=== PATIENT | male | born 1960 | race African-American/Black ===

== ENCOUNTER 2017-02-17 16:40 | Inpatient (IN) | payer MEDICARE ==
[~2017-02-17 16:40] MED LIST: ISOVUE-370 76%-LOCM 1 ML ONE
--- NOTE | 2017-02-17 17:29 | RAD ---
PORTABLE CHEST: Comparison: 03-23-16 History: Shortness of breath. FINDINGS: Heart size and mediastinum are within normal limits. The lungs appear clear of infiltrates. No inter josesito change since the prior exam. IMPRESSION: No active intrathoracic disease. POS: [facility]
[2017-02-17 17:30] LABS: #Eosinphils 0.4 thou/uL (0.0-0.7); #Lymphocytes 2.1 thou/uL (1.20-3.40); #Monocytes 1.1 thou/uL (0.11-0.59); #Neutrophils 4.7 thou/uL (1.40-6.50); %Basophils 0.2 % (0.0-1.0); %Eosinophils 4.3 % (0.0-10.0); %Lymphocytes 25.5 % (21.0-51.0); %Monocytes 13.5 % (0.0-10.0); Hematocrit 38.1 % (42.0-52.0); Mean Platelet Volume 9.8 fL (7.4-10.4); Red Blood Cell (RBC) Count 3.75 mill/uL (4.70-6.10); White Blood Cell (WBC) Count 8.4 thou/uL (4.8-10.8)
[2017-02-17 17:44] LABS: ALT (SGPT) 86 U/L (8-55); AST (SGOT) 155 U/L (5-34); Alkaline Phosphatase 872 U/L (40-150); Anion Gap 11 mmol/L (10-20); BUN (Urea Nitrogen) 10 mg/dL (8.4-25.7); Bilirubin, Total 5.2 mg/dL (0.2-1.2); CK (CPK) 103 U/L (30-200); Calc. Creatinine Clearance 0 mL/min (70-130); Calcium 8.7 mg/dL (7.8-10.44); Carbon Dioxide 26 mmol/L (22-29); Chloride 96 mmol/L (98-107); Estimated GFR-MDRD Greater than 90; Globulin 6.4 g/dL (2.4-3.5); Protein, Total 8.8 g/dL (6.0-8.3)
[2017-02-17 17:49] LABS: Troponin I Less than 0.010 ng/mL (< 0.028)
[2017-02-17 18:20] LABS: Bilirubin Small (Negative); Blood, Urine Negative (Negative); Glucose, Urine (Dipstick) >=1000 mg/dL (Negative); Ketone, Urine Negative (Negative); Nitrite Negative (Negative); Protein, Urine (Dipstick) Negative (Neg-Trace)
[2017-02-17 18:29] LABS: Amphetamine Not Detected (NotDetected); Methadone Not Detected (NotDetected); Methamphetamine Not Detected (NotDetected)
--- NOTE | 2017-02-17 18:52 | CT ---
CT ANGIO CHEST PERFORMED WITH INTRAVENOUS CONTRAST ENHANCEMENT WITH 3D RECONSTRUCTIONS: History: Shortness of breath. FINDINGS: The lungs are clear of any infiltrative process. There is no significant mediastinal or hilar adenop athy. The thoracic aorta is tortuous. The ascending thoracic aorta has an AP dimension of approximately 3. 9 cm. There is good pulmonary artery opacification, there is no CT evidence for pulmonary embolus. IMPRESSION: No CT evidence of pulmonary embolus. See CT abdomen report for additional findings. POS: [facility]
--- NOTE | 2017-02-17 18:53 | CT ---
CT BRAIN PERFORMED WITHOUT CONTRAST ENHANCEMENT: History: Headache, altered mental status. Comparison: 04-29-12 FINDINGS: Ventricular and cisternal system is within normal limits. There is no sign of intracerebral hemorrha ge or extraaxial fluid collections. Mastoid air cells and visualized sinuses are clear. IMPRESSION: No acute intracranial abnormalities. POS: [facility]
--- NOTE | 2017-02-17 19:46 | CT ---
CT OF ABDOMEN AND PELVIS PERFORMED WITH CONTRAST ENHANCEMENT: History: Abdominal and chest pain, shortness of breath, history of hypertension and diabetes. FINDINGS: The lung bases are clear. The liver is slightly enlarged at 19 cm is diffusely infiltrated with multiple masses with more conf luent area within the right lung. I am not certain whether this is a primary mass or just a conglome ration of multiple small nodules. Spleen measures 11 cm in length. The pancreas and gallbladder sol ons appear unremarkable. A small amount of ascites is noted adjacent to the liver and the pelvis. The right and left adrenal glands and right and left kidneys are normal in size. No significant roni aortic or mesenteric adenopathy. There is some slightly enlarged portal lymph nodes noted. There is some mild fluid distention of the small bowel. I cannot exclude this as an enteritis. CT OF PELVIS PERFORMED WITH CONTRAST ENHANCEMENT: No adenopathy, mass, or free fluid. Review of osseous structures show no lytic or blastic bony change. IMPRESSION: 1. Multiple masses within the liver. This could either be a primary hepatocellular carcinoma or meta static disease. 2. Findings telephoned to Dr. Schwartz. POS: [facility]
[2017-02-17] MEDS ORDERED: Dextrose 50% Abboject 50 ML SYRINGE SLOW IVP PRN (21:06)
[2017-02-17] MEDS ORDERED: Dextrose 5% in Water 1,000 ML IV PRN (21:06)
[2017-02-17] MEDS ORDERED: Ondansetron HCl/PF 4 MG/2 ML Vial IVP PRN ×2 (21:07→21:09)
[2017-02-17] MEDS ORDERED: Levalbuterol HCl 0.63 MG/3 ML NEB NEB PRN (21:07)
[2017-02-17] MEDS ORDERED: cloNIDine 0.1 MG TAB PO PRN (21:09)
[2017-02-17] MEDS ORDERED: HYDROcodone/Acetaminophen 5/325 mg Tablet PO PRN ×2 (21:09)
[2017-02-17] MEDS ORDERED: Ondansetron ODT 4 MG TAB SL PRN (21:09)
[2017-02-17] MEDS ORDERED: Acetaminophen 325 MG TAB PO PRN (21:09)
[2017-02-17] MEDS ORDERED: Morphine 2 MG/ML SYRINGE SLOW IVP PRN (21:10)
[2017-02-17] MEDS ORDERED: Amlodipine 5 MG TAB PO SCH (21:30)
[2017-02-17 21:39] LABS: Prothrombin Time 16.3 SEC (12.0-14.7)
[2017-02-17 22:15] VITALS: BMI 17.4
[2017-02-17] MEDS: Dextrose 5 % And 0.9 % NaCl 1,000 ML IV SCH (22:34)
--- NOTE | 2017-02-18 05:37 | HP ---
DATE OF ADMISSION: 02/17/2017 PRIMARY CARE PHYSICIAN: Dr. Claire CHIEF COMPLAINT: Shortness of breath. HISTORY OF PRESENT ILLNESS: Mr. Casper is a 56-year-old -[place] male who was brought in by a friend per patient request. He apparently had been having shortness of breath for the last few day s, but had denied any abdominal pain, nausea or vomiting. Per friend, he was also noted not to be hi mself and had not been feeling well for the last few days. He had also mentioned that he had been s een in the ER before possibly for high blood pressure, but unsure about what he was taking. ALLERGIES: No known drug allergy. PAST MEDICAL HISTORY: Diabetes that was mentioned above. Hypertension, the patient was only able t o tell that he was taking metformin. PAST SURGICAL HISTORY: Unknown. SOCIAL HISTORY: The patient drinks beer. No history of smoking. FAMILY HISTORY: Unknown. REVIEW OF SYSTEMS: The patient only complaint of shortness of breath with exertion, congestion. De nied any headache or dizziness, friend had noted that he might have been confused, but patient denie d any fever, chills, abdominal pain, denied any diarrhea or constipation. No hematemesis, melena or hemoptysis. PHYSICAL EXAMINATION: VITAL SIGNS: Blood pressure ranging from 158/100 to 160/98, heart rate of 91, respiratory rate 18, satting 98% on room air, temperature of 98.6 to 99. GENERAL: The patient is awake. HEENT: Pupils equally reactive, icteric sclerae. HEART: Normal S1, S2. LUNGS: Clear anteriorly. ABDOMEN: Slightly distended, but nontender to palpation. EXTREMITIES: No edema. NEUROLOGIC: The patient is aware of where he is at and able to follow commands. LABORATORY DATA: White count 8.4, hemoglobin 12.5, platelet 191. D-dimer 1.75. Sodium 129, potass ium 3.9, chloride 96, BUN 10, creatinine 0.77, total bilirubin 5.2, AST 155, ALT 86, alkaline phosph atase 872, BNP 97. Albumin 2.4, globulin 6.4, lipase 41. UA showed glucose of more than one thousa nd with bilirubin. UDS was positive for cocaine. Chest CT was negative for PE. The brain CT did n ot show any acute changes. CT of the abdomen showed multiple masses within the liver, could either be a primary hepatocellular carcinoma metastatic, small amount of ascites was noted adjacent to the liver and pelvis. ASSESSMENT: 1. Liver masses possible primary hepatocellular metastatic disease. 2. Abnormal liver function tests, likely secondary to above. 3. Shortness of breath, negative for pulmonary embolism. 4. Hypertension. 5. Diabetes. 6. Hyponatremia. 7. Encephalopathy. PLAN: Plan will be to consult GI and Oncology. We will request for CEA, alpha-fetoprotein, PT/INR. We will start patient on IV fluid D5 normal saline for the hyponatremia. Repeat BMP tomorrow. We will also check ammonia level and recheck CMP tomorrow. SCD for DVT prophylaxis. We will start th e patient on antihypertensive medication. We will also put the patient to check insulin slidi ng scale.
[2017-02-18] MEDS: Amlodipine 5 MG TAB PO SCH (08:15)
[2017-02-18 08:54] LABS: ALT (SGPT) 84 U/L (8-55); AST (SGOT) 147 U/L (5-34); Alkaline Phosphatase 814 U/L (40-150); Anion Gap 9 mmol/L (10-20); BUN (Urea Nitrogen) 7 mg/dL (8.4-25.7); Bilirubin, Total 4.6 mg/dL (0.2-1.2); Calc. Creatinine Clearance 86 mL/min (70-130); Calcium 8.3 mg/dL (7.8-10.44); Carbon Dioxide 26 mmol/L (22-29); Chloride 95 mmol/L (98-107); Estimated GFR-MDRD Greater than 90; Globulin 5.9 g/dL (2.4-3.5); Magnesium 1.2 mg/dL (1.6-2.6); Phosphorus 3.2 mg/dL (2.3-4.7); Protein, Total 8.1 g/dL (6.0-8.3)
[2017-02-18 08:58] LABS: #Eosinphils 0.6 thou/uL (0.0-0.7); #Monocytes 1.2 thou/uL (0.11-0.59); #Neutrophils 4.3 thou/uL (1.40-6.50); %Basophils 0.3 % (0.0-1.0); %Eosinophils 6.8 % (0.0-10.0); %Monocytes 14.5 % (0.0-10.0); Hematocrit 35.6 % (42.0-52.0); Mean Platelet Volume 9.3 fL (7.4-10.4); Red Blood Cell (RBC) Count 3.51 mill/uL (4.70-6.10); White Blood Cell (WBC) Count 8.1 thou/uL (4.8-10.8)
[2017-02-18] MEDS ORDERED: Magnesium Sulfate 4 GM, Admixture Fee 1 EACH in Sodium Chloride 0.9% 250 ML 250 ML IVPB SCH (09:00)
[2017-02-18] MEDS ORDERED: Pantoprazole 40 MG VIAL IVP SCH (09:00)
[2017-02-18] MEDS: Insulin Regular 300 UNITS/3 ML VIAL SC PRN ×3 (12:03→22:52)
[2017-02-18] MEDS: Dextrose 5 % And 0.9 % NaCl 1,000 ML IV SCH (12:03)
--- NOTE | 2017-02-18 14:10 | PDOC.PN ---
- Subjective Encounter Start Date: 02/18/17 Encounter Start Time: 14:08 Patient seen and examined. No new complaints. No overnight events. Mentation improving. - Objective MAR Reviewed: Yes Vital Signs & Weight: Vital Signs (12 hours) Temp Pulse Resp BP BP BP Pulse Ox 02/18/17 12:19 98.1 F 82 20 141/86 H 98 02/18/17 12:00 141/86 H 02/18/17 08:36 98 F 85 20 98 02/18/17 08:21 98 F 85 20 143/93 H 98 02/18/17 08:15 98 143/93 H 02/18/17 08:00 143/93 H 02/18/17 04:00 98.3 F 82 18 149/97 H 100 Weight Admit Weight 114 lb 12.8 oz Weight 114 lb 12.8 oz I&O: 02/17/17 02/18/17 02/19/17 06:59 06:59 06:59 Intake Total 915 Output Total 700 Balance 215 Result Diagrams: 02/18/17 08:16 02/19/17 03:55 Additional Labs: Accuchecks 02/18/17 02/18/17 02/17/17 11:12 05:17 21:18 POC Glucose 305 H 273 H 279 H Radiology Reviewed by me: Yes (CT abd - reviewed) Phys Exam - Physical Examination Constitutional: NAD Respiratory: no wheezing, no rhonchi Cardiovascular: RRR, no rub Gastrointestinal: soft, non-tender, positive bowel sounds Musculoskeletal: no edema Neurological: non-focal, moves all 4 limbs Dx/Plan (1) Liver mass Code(s): R16.0 - HEPATOMEGALY, NOT ELSEWHERE CLASSIFIED Status: Acute Comment: with Abn LFTs (2) HTN (hypertension) Code(s): I10 - ESSENTIAL (PRIMARY) HYPERTENSION Status: Chronic (3) DM2 (diabetes mellitus, type 2) Status: Chronic (4) Hypomagnesemia Code(s): E83.42 - HYPOMAGNESEMIA Status: Acute (5) Hyponatremia Code(s): E87.1 - HYPO-OSMOLALITY AND HYPONATREMIA Status: Acute (6) Other issues per previous notes - Plan cont current plan of care, DVT proph w/SCDs * Await GI input * Change IVF to 1/2 NS * Cont to monitor * Cont other meds as below * Replace Mg * Change PPI to PO Review of Systems - Review of Systems Respiratory: negative: Cough, Dry, Shortness of Breath, Hemoptysis, SOB with Excertion, Pleuritic Pain, Sputum, Wheezing Cardiovascular: negative: Chest Pain, Palpitations, Orthopnea, Paroxysmal Noc. Dyspnea, Edema, Light Headedness, Other - Medications/Allergies Allergies/Adverse Reactions: Allergies Allergy/AdvReac Type Severity Reaction Status Date / Time No Known Drug Allergies Allergy Unverified 02/17/17 21:09 Medications: Current Medications Albuterol/Ipratropium (Duoneb) 3 ml NEB [id number] PRN PRN Reason: SOB &/or Wheezing Amlodipine Besylate (Norvasc) 2.5 mg PO DAILY [facility] Last Admin: 02/18/17 08:15 Dose: 2.5 mg Clonidine HCl (Catapres) 0.1 mg PO Q6H PRN PRN Reason: Hypertension Dextrose/Water (Dextrose 50%) 25 gm SLOW IVP PRN PRN PRN Reason: Hypoglycemia Glucagon (Glucagon) 1 mg IM PRN PRN PRN Reason: Hypoglycemia Dextrose/Water (D5w) 1,000 mls @ 0 mls/hr IV .Q0M PRN; As Directed PRN Reason: Hypoglycemia Sodium Chloride (Normal Saline 0.9%) 1,000 mls @ 75 mls/hr IV .[id number] [facility] Insulin Human Regular (Humulin R) 0 units SC .MILD SLIDING SCALE PRN PRN Reason: Mild Correctional Scale Last Admin: 02/18/17 12:03 Dose: 5 unit Ondansetron HCl (Zofran) 4 mg IVP Q6H PRN PRN Reason: Nausea/Vomiting Pantoprazole Sodium (Protonix) 40 mg PO DAILY [facility] Sodium Chloride (Flush - Normal Saline) 10 ml IVF Q12HR JIM Last Admin: 02/18/17 08:15 Dose: 10 ml Sodium Chloride (Flush - Normal Saline) 10 ml IVF PRN PRN PRN Reason: Saline Flush
[2017-02-18] MEDS: Sodium Chloride 0.9% 1,000 ML IV SCH (15:19)
[2017-02-18] MEDS ORDERED: traMADol HCl 50 MG TAB PO PRN (18:23)
[2017-02-18] MEDS ORDERED: Acetaminophen 325 MG TAB PO PRN (19:01)
--- NOTE | 2017-02-19 02:21 | CON ---
DATE OF CONSULTATION: 02/18/2017 CHIEF COMPLAINT: Shortness of breath. HISTORY OF PRESENT ILLNESS: Mr. Casper is a 56-year-old man who came to the emergency room yesterday with shortness of breath. He had a CT scan of his abdomen and pelvis performed that showed masses t hroughout the liver and cluster masses in the lung. He has lost 25 pounds over the last couple of m onths. He has had no nausea, vomiting, diarrhea, constipation, blood in stool or abdominal pain. Moose Duran was consulted to evaluate the liver masses. PAST MEDICAL HISTORY: Developmental delay, hypertension, diabetes mellitus. PAST SURGICAL HISTORY: He had some type of bladder surgery. FAMILY HISTORY: Negative for GI malignancies. SOCIAL HISTORY: He drinks alcohol, a couple of drinks every couple days. His tox screen was positi ve for cocaine on presentation. He does not smoke. ALLERGIES: No known drug allergies. MEDICATIONS AT HOME: He takes medicine for diabetes. REVIEW OF SYSTEMS: Negative x10 systems reviewed except as stated in the history of present illness . PHYSICAL EXAMINATION: VITAL SIGNS: Temperature 99.0, pulse 76, blood pressure 138/86. GENERAL: He is in no acute distress. He is awake and alert. HEENT: Eyes have no scleral icterus. Oropharynx is clear, without lesions. NECK: No cervical or supraclavicular lymphadenopathy. LUNGS: Clear to auscultation bilaterally. HEART: Regular rate and rhythm. ABDOMEN: Soft. His liver is enlarged and firm. EXTREMITIES: No lower extremity edema. LABORATORY FINDINGS: White blood cell count 8.1, hemoglobin 11.5, platelets 197. INR 1.3. Sodium 126, BUN 7, creatinine 0.72, magnesium 1.2, bilirubin 4.6, AST 147, ALT 84, alkaline phosphatase 814 , albumin 2.2. Alpha fetoprotein 88,261. IMPRESSION: 1. Advanced hepatocellular carcinoma involving the entire liver with evidence of metastatic disease to lung. His alpha fetoprotein is extremely high. 2. Abnormal liver tests. He has cholestatic liver function tests due to the tumor burden in the li maeve. Hepatocellular carcinoma usually occurs in the setting of established cirrhosis. I would [facility] viral hepatitis B and C screen. RECOMMENDATIONS: 1. Consult Oncology. Chemotherapy tends to be limited for this type of cancer and the depressed li maeve function may limit options further. 2. He is not a candidate for transplant or radiofrequency ablation or chemoembolization. 3. Hospice care might ultimately be the best option for him. I discussed his diagnosis with him an d his sister, Maria Antonia Casper. Her phone number is [phone].
[2017-02-19 04:35] LABS: ALT (SGPT) 83 U/L (8-55); AST (SGOT) 141 U/L (5-34); Alkaline Phosphatase 771 U/L (40-150); Anion Gap 9 mmol/L (10-20); BUN (Urea Nitrogen) 7 mg/dL (8.4-25.7); Bilirubin, Total 4.8 mg/dL (0.2-1.2); Calc. Creatinine Clearance 89 mL/min (70-130); Calcium 8.2 mg/dL (7.8-10.44); Carbon Dioxide 27 mmol/L (22-29); Chloride 95 mmol/L (98-107); Estimated GFR-MDRD Greater than 90; Globulin 6.1 g/dL (2.4-3.5); Protein, Total 8.3 g/dL (6.0-8.3)
[2017-02-19] MEDS: Sodium Chloride 0.9% 1,000 ML IV SCH ×2 (05:06→16:50)
[2017-02-19] MEDS: Insulin Regular 300 UNITS/3 ML VIAL SC PRN ×3 (05:48→16:48)
[2017-02-19 07:58] LABS: Magnesium 1.4 mg/dL (1.6-2.6)
[2017-02-19] MEDS: Amlodipine 5 MG TAB PO SCH (09:05)
[2017-02-19] MEDS ORDERED: Calcium Carbonate 500 MG ChewTAB PO PRN (09:20)
[2017-02-19] MEDS ORDERED: Senokot 8.6 MG TAB PO PRN (09:20)
[2017-02-19] MEDS ORDERED: Magnesium Sulfate 4 GM in Sodium Chloride 0.9% 250 ML 250 ML IVPB SCH (09:30)
[2017-02-19] MEDS: NPH, Human Insulin Isophane 300 UNIT/3 ML VIAL SC SCH (09:53)
--- NOTE | 2017-02-19 12:36 | PQF ---
LUL VASQUEZ MALIK MD [id number] CLINICAL DOCUMENTATION IMPROVEMENT CLARIFICATION FORM: ICD-10 Updated PLEASE DO AN ADDENDUM TO THE PROGRESS NOTE WITH ANY DOCUMENTATION UPDATES OR ADDITIONS AND CARRY THROUGH TO DC SUMMARY. THANK YOU. Date: 02-19-17 ATTN: DR. HARPER Please exercise your independent, professional judgment in responding to the clarification form. Clinical indicators are provided on the bottom of this form for your review Please check appropriate box(s): [ ] Protein Calorie Malnutrition: [ ] Mild [ ] Moderate [ ] Severe [ ] Other Malnutrition (please specify) __ [ ] Underweight without malnutrition [ ] Cachexia [ ] Other diagnosis [ ] Unable to determine In addition, please specify: Present on Admission (POA): [ ] Yes [ ] No [ ] Unable to determine CLINICAL INDICATORS - SIGNS / SYMPTOMS / LABS BMI 17 GI CONSULT: HE HAS LOST 25 PUNDS OVER LAST COUPLE OF MONTHS DIETARY CONSULT: MUSCLE WASTING NOTED TO CHES, TEMPORAL AREA, FAT WASTING TO ORBITAL AREA; LOW BUN/ ALBUMIN LABS: 02-18 BUN 7 7 ALBUMIN 2.2 2.2 RISK FACTORS H&P: SOCIAL HX - DRINKS BEER UDS WAS POSITIVE FOR COCAINE 02-18 GI CONSULT: ADVANCED HEPATOCELLULAR CARCINOMA INVOLVING THE ENTIRE LIVER W/ EVIDENCE OF METASTATIC DISEASE TO LUNG. HEPATOCELLULAR CARCINOMA USUALLY OCCURS IN SETTING OF ESTABLISHED CIRRHOSIS. TREATMENT: DIETARY CONSULT: RECOMMEND: CONTINUE 1800 KCAL CONSISTENT CARBOHYDRATE DIET ENSURE ENLIVE DAILY TO PROVIDE ADDITIONAL KCALS AND PROTEIN DEFER TO MD FOR IVF RECOMMENDATIONS/ SODIUM SUPPLEMENTATION RECOMMENDATIONS TO ADDRESS HYPONATREMIA HIGH PRIORITY F/U THANK YOU, BETHANY (This form is maintained as a part of the permanent medical record) 2014 [employer]. All Rights Reserved Bethany Gusman RN, BS [email or web address] [facility]
--- NOTE | 2017-02-19 13:27 | PRG ---
DATE OF SERVICE: 02/19/2017 SUBJECTIVE: He feels fine today. No acute complaints. OBJECTIVE: VITAL SIGNS: Temperature 98.1, pulse 70, blood pressure 112/58. GENERAL: He is in no acute distress, awake and alert. LUNGS: Clear to auscultation bilaterally. HEART: Regular rate and rhythm. ABDOMEN: Soft, nontender, nondistended, bowel sounds are present. EXTREMITIES: No lower extremity edema. NEUROLOGIC: Reveals no asterixis. LABORATORY DATA: Creatinine 0.7, bilirubin 4.8, AST 141, ALT 83, alkaline phosphatase 771, and albu min 2.2. IMPRESSION: 1. Hepatocellular carcinoma diffusely involving the liver and apparently possibly involving the floyd gs as well. He has lost lot of weight and otherwise does not have significant symptoms currently. He did have shortness of breath leading to the admission. 2. He most likely has cirrhosis given the underlying hepatocellular carcinoma. RECOMMENDATIONS: 1. Oncology and Palliative Care have been consulted. 2. We will check underlying viral hepatitis B and C status. 3. I will sign off for now. Please call if GI can be of assistance.
--- NOTE | 2017-02-19 14:54 | PDOC.PN ---
- Subjective Encounter Start Date: 02/19/17 Encounter Start Time: 14:00 Patient seen and examined. No new complaints. No overnight events. Started bleeding from a skin lesion on left side of neck after scratching - Objective MAR Reviewed: Yes Vital Signs & Weight: Vital Signs (12 hours) Temp Pulse Resp BP BP Pulse Ox 02/19/17 12:10 112/58 L 02/19/17 09:05 70 135/80 02/19/17 08:00 98.1 F 70 16 135/80 135/80 99 02/19/17 03:41 98.3 F 71 16 136/87 100 Weight Admit Weight 114 lb 12.8 oz Weight 114 lb 12.8 oz I&O: 02/18/17 02/19/17 02/20/17 06:59 06:59 06:59 Intake Total 915 2906 159 Output Total 700 1050 300 Balance 215 1856 -141 Result Diagrams: 02/20/17 03:46 02/20/17 03:46 Additional Labs: Accuchecks 02/19/17 02/19/17 02/18/17 11:13 05:45 20:07 POC Glucose 249 H 240 H 213 H 02/18/17 16:21 POC Glucose 211 H Laboratory Tests 02/19/17 02/19/17 03:55 03:55 Magnesium 1.4 L Total Bilirubin 4.8 H AST 141 H ALT 83 H Alkaline Phosphatase 771 H Phys Exam - Physical Examination Constitutional: NAD Neck: no JVD bleeding from the skin lesion - didn't stop after pressure for >30 min Respiratory: no wheezing, no rhonchi Cardiovascular: RRR, no rub Gastrointestinal: soft, non-tender, positive bowel sounds Musculoskeletal: no edema Neurological: moves all 4 limbs Dx/Plan (1) Liver mass Code(s): R16.0 - HEPATOMEGALY, NOT ELSEWHERE CLASSIFIED Status: Acute Comment: with Abn LFTs (2) HTN (hypertension) Code(s): I10 - ESSENTIAL (PRIMARY) HYPERTENSION Status: Chronic (3) DM2 (diabetes mellitus, type 2) Status: Chronic (4) Hypomagnesemia Code(s): E83.42 - HYPOMAGNESEMIA Status: Acute (5) Hyponatremia Code(s): E87.1 - HYPO-OSMOLALITY AND HYPONATREMIA Status: Acute (6) Other issues per previous notes (7) Hemorrhage of skin lesion Code(s): R23.3 - SPONTANEOUS ECCHYMOSES Status: Acute (8) Severe protein-calorie malnutrition Code(s): E43 - UNSPECIFIED SEVERE PROTEIN-CALORIE MALNUTRITION Status: Chronic - Plan cont current plan of care, plan discussed w/ family, DVT proph w/SCDs * GI input appreciated * Consult gen surg due to skin hemorrhage - not responding to pressure dressing * Cont to monitor * Cont other meds as below * Palliative team consulted * Await Oncology input * AM labs * Replace Magnessium Review of Systems - Review of Systems Respiratory: negative: Cough, Dry, Shortness of Breath, Hemoptysis, SOB with Excertion, Pleuritic Pain, Sputum, Wheezing Cardiovascular: negative: Chest Pain, Palpitations, Orthopnea, Paroxysmal Noc. Dyspnea, Edema, Light Headedness, Other - Medications/Allergies Allergies/Adverse Reactions: Allergies Allergy/AdvReac Type Severity Reaction Status Date / Time No Known Drug Allergies Allergy Unverified 02/17/17 21:09 Medications: Current Medications Acetaminophen (Tylenol) 325 mg PO Q6H PRN PRN Reason: Headache/Fever or Pain Albuterol/Ipratropium (Duoneb) 3 ml NEB [id number] PRN PRN Reason: SOB &/or Wheezing Amlodipine Besylate (Norvasc) 2.5 mg PO DAILY [facility] Last Admin: 02/19/17 09:05 Dose: 2.5 mg Calcium Carbonate (Tums) 1,000 mg PO Q4H PRN PRN Reason: Heartburn or Indigestion Clonidine HCl (Catapres) 0.1 mg PO Q6H PRN PRN Reason: Hypertension Dextrose/Water (Dextrose 50%) 25 gm SLOW IVP PRN PRN PRN Reason: Hypoglycemia Docusate Sodium (Colace) 100 mg PO BID J[facility] Famotidine (Pepcid) 20 mg PO BID [facility] Glucagon (Glucagon) 1 mg IM PRN PRN PRN Reason: Hypoglycemia Dextrose/Water (D5w) 1,000 mls @ 0 mls/hr IV .Q0M PRN; As Directed PRN Reason: Hypoglycemia Sodium Chloride (Normal Saline 0.9%) 1,000 mls @ 75 mls/hr IV .[id number] [facility] Last Admin: 02/19/17 05:06 Dose: 1,000 mls Insulin Human NPH (Humulin N) 8 unit SC DAILY [facility] Last Admin: 02/19/17 09:53 Dose: 8 unit Insulin Human Regular (Humulin R) 0 units SC .MILD SLIDING SCALE PRN PRN Reason: Mild Correctional Scale Last Admin: 02/19/17 11:53 Dose: 3 unit Ondansetron HCl (Zofran) 4 mg IVP Q6H PRN PRN Reason: Nausea/Vomiting Pantoprazole Sodium (Protonix) 40 mg PO DAILY [facility] Last Admin: 02/19/17 09:05 Dose: 40 mg Senna (Senokot) 2 tab PO HSPRN PRN PRN Reason: Constipation Sodium Chloride (Flush - Normal Saline) 10 ml IVF Q12HR JIM Last Admin: 02/19/17 09:06 Dose: Not Given Sodium Chloride (Flush - Normal Saline) 10 ml IVF PRN PRN PRN Reason: Saline Flush Tramadol HCl (Ultram) 50 mg PO Q8H PRN PRN Reason: Pain Last Admin: 02/18/17 19:23 Dose: 50 mg
--- NOTE | 2017-02-19 18:44 | CON ---
DATE OF CONSULTATION: 02/19/2017 REASON FOR CONSULTATION: Hepatocellular carcinoma. HISTORY OF PRESENT ILLNESS: Mr. Casper is a 56-year-old -[place] male who presented to the emergency room with shortness of breath, chest pain and abdominal pain. He had a CT scan of his abdomen and pelvis, which showed a liver diffusely infiltrated with masses. He had a chest CT angio, which showed no evidence of emboli. He had a brain CT, which was negative for metastatic disease. Patient has a history of heavy alcohol abuse, although he has cut back and drinks only a few beers a day. He has lost 25 pounds over the last couple of months. He denies no nausea, vomiting, diarrhea, constipation or abdominal pain. He denies any blood in his stool. An alpha-fetoprotein was performed and was found to be greater than 88,000, which is diagnostic for primary hepatocellular carcinoma. PAST MEDICAL HISTORY: 1. Developmental delay. 2. Hypertension. 3. Diabetes mellitus 2. 4. Alcohol use. PAST SURGICAL HISTORY: Bladder surgery. ALLERGIES: No known drug allergies. HOME MEDICATIONS: Diabetes medication. He does not know the name. FAMILY HISTORY: No known history of malignancy. SOCIAL HISTORY: Single, lives with his niece. Daily drinker. No alcohol or illicit drug use. REVIEW OF SYSTEMS: Ten-point review of systems is negative except for noted in HPI. PHYSICAL EXAMINATION: VITAL SIGNS: Temperature is 98.1, pulse is 70, respiratory rate 16, BP is 135/ 80 and he is satting 99% on room air. GENERAL: This is a thin male in no acute distress. HEENT: Normocephalic and atraumatic. Pupils are equal and reactive to light. NECK: Supple. CARDIOVASCULAR: Regular rate and rhythm. LUNGS: Clear. ABDOMEN: Soft, nontender, bowel sounds are positive. He has palpable liver just below the ribcage. EXTREMITIES: No clubbing, cyanosis or edema. SKIN: No rash. HEMATOLOGIC: No petechia or purpura. NEUROLOGIC: Nonfocal. PSYCHIATRIC: The patient is alert and oriented and appropriate. PERTINENT LABORATORY AND X-RAYS: Current WBCs are 8.1, hemoglobin 11.5, hematocrit 35.6, platelet count 197,000, 53% neutrophils and 25% lymphocytes. PT 16.3 and INR is 1.3. Sodium is 127, potassium 4.3, chloride 95, CO2 is 27, BUN is 7, creatinine 0.7 and calcium is 8.2. Total bilirubin is 4.8, AST is 141 , ALT is 83 and alkaline phosphatase is 771. Serum total protein is 8.3, albumin 2.2 and globulin 6.1. Urine is negative for bacteria had cocaine on his drug screen at admission. Radiology per HPI. ASSESSMENT: 1. Hepatocellular carcinoma involving the entire liver. 2. Hyperbilirubinemia. DISCUSSION: Patient has advanced disease. He has diffuse infiltrates of cancer in his liver. He is not a candidate for ablation or resection. We discussed chemotherapy treatment with sorafenib. Unfortunately, with his elevated bilirubin, there is no recommended dosing. We discussed possible referral to [place] for a clinical trial or hospice. Family and patient agreed to quality of life and would prefer hospice. manager of pharmacy has been consulted for their assistance. Case discussed with Dr. Mcconnell. Thank you for the consult. [facility]PITALRamila
[2017-02-19] MEDS: Famotidine 20 MG TAB PO SCH (20:20)
[2017-02-19] MEDS: Docusate 100 MG CAP PO SCH (20:20)
[2017-02-20 04:09] LABS: Hematocrit 34.2 % (42.0-52.0)
[2017-02-20 04:30] LABS: ALT (SGPT) 73 U/L (8-55); AST (SGOT) 118 U/L (5-34); Alkaline Phosphatase 714 U/L (40-150); Anion Gap 8 mmol/L (10-20); BUN (Urea Nitrogen) 9 mg/dL (8.4-25.7); Bilirubin, Total 4.2 mg/dL (0.2-1.2); Calc. Creatinine Clearance 94 mL/min (70-130); Carbon Dioxide 25 mmol/L (22-29); Chloride 97 mmol/L (98-107); Estimated GFR-MDRD Greater than 90; Globulin 5.5 g/dL (2.4-3.5); Magnesium 1.4 mg/dL (1.6-2.6); Protein, Total 7.6 g/dL (6.0-8.3)
[2017-02-20] MEDS: Magnesium 2 GM/NS 0.9% 50 ML 2 GM in Premix Bag 1 BAG IVPB SCH ×2 (06:07→08:23)
[2017-02-20 07:28] VITALS: BP 122/93; TEMP 99.2
[2017-02-20] MEDS: Amlodipine 5 MG TAB PO SCH (08:23)
[2017-02-20] MEDS: Docusate 100 MG CAP PO SCH (08:23)
[2017-02-20] MEDS: Famotidine 20 MG TAB PO SCH (08:23)
[2017-02-20] MEDS: NPH, Human Insulin Isophane 300 UNIT/3 ML VIAL SC SCH (08:24)
[2017-02-20] MEDS: Sodium Chloride 0.9% 1,000 ML IV SCH (08:29)
--- NOTE | 2017-02-20 11:03 | DIS ---
DATE OF DISCHARGE: 02/20/2017 DISCHARGE DISPOSITION: Home with hospice. DISCHARGE MEDICATIONS: Amlodipine 2.5 mg daily. Please note that exact home medications are unclea r. He was advised to verify with his primary care physician, Dr. Claire. ALLERGIES: No known drug allergies. The patient was seen and examined on the day of discharge. Denies any new complaints. No chest della n, shortness of breath or palpitations. INPATIENT FORGE OPERATOR: 1. Gastroenterology, Dr. Laguna. The patient was advised to follow up with Dr. Laguna as an outpatie nt. 2. Oncology, Dr. Blandon. BRIEF HOSPITAL COURSE: Patient is a 56-year-old male with hypertension and diabetes mellitus type 2 , presented to the hospital with chest discomfort. Please refer to the history and physical dated for further details. The patient was admitted to the hospital with a diagnosis of new hepatocellular metastatic disease. CT scan of the abdomen and pelvis in the emergency room, which showed multiple masses within the li maeve. CT angiogram of the chest was negative for pulmonary embolism. The patient was evaluated by [facility] astroenterology as well as Oncology. His alpha fetoprotein was 88,262. His urine drug screen was p ositive for cocaine as well. Hepatitis C antibody was positive. Hepatitis C RNA is pending at this time. Hospice was recommended by Oncology, which patient has accepted. He will be discharged home with hospice. FINAL DIAGNOSES: 1. Hepatocellular metastatic disease. 2. Abnormal liver function tests secondary to #1. 3. Chronic hepatitis C, new diagnosis. 4. Hyponatremia. His sodium on the day of discharge is 126. 5. Hypomagnesemia, replaced. 6. Hypertension. 7. Diabetes mellitus type 2. 8. Bleeding from a skin lesion on the left side of the neck on 02/19/2017 requiring cauterization. The patient probably scraped on a hemangioma that started bleeding. General Surgery was consulted for this reason. Plan of care was discussed with the patient and the family at the bedside. They stated milady lynn
[2017-02-22 14:20] LABS: Hep C PCR-Quant 337000 IU/mL (.)
== END 2017-02-20 10:50 | disposition hospice, home (50) | DRG 435 ==
LOC: ERS 16:40 → ONC 20:57
PROVIDERS: ADMIT Internal Medicine; ATTEND Internal Medicine
DX: C22.0 Liver cell carcinoma (principal); G93.40 Encephalopathy, unspecified; E43 Unspecified severe protein-calorie malnutrition; C78.00 Secondary malignant neoplasm of unspecified lung; E87.1 Hypo-osmolality and hyponatremia; E83.42 Hypomagnesemia; Z68.1 Body mass index [BMI] 19.9 or less, adult; I10 Essential (primary) hypertension; E11.9 Type 2 diabetes mellitus without complications; F14.10 Cocaine abuse, uncomplicated; Z51.5 Encounter for palliative care; B18.2 Chronic viral hepatitis C; F10.10 Alcohol abuse, uncomplicated; E80.6 Other disorders of bilirubin metabolism; R23.3 Spontaneous ecchymoses
CPT/HCPCS: 36415; 36416; 70450; 71010; 71275; 74177; 80053; 80306; 80307; 81003; 82105; 82140; 82378; 82553; 83690; 83735; 83880; 84100; 84443; 84484; 85014; 85018; 85025; 85049; 85379; 85610; 86803; 87340; 87522; 93005; 94760; A4216; C9113; J1815; J3475; J7050